=== PATIENT | male | born 1980 | race Caucasian/White ===

== ENCOUNTER 2017-02-03 17:33 | Emergency (ER) ==
[2017-02-03 17:37] VITALS: BP 148/82; TEMP 97.5; BMI 23.0
[2017-02-03] MEDS ORDERED: MORPHINE 2 MG/ML SYRINGE IVP STA ×2 (17:43→18:32)
--- NOTE | 2017-02-03 17:50 | ED.PDOC ---
General ED Provider: Dr. ALBERT FRANKLIN JR Chief Complaint: Hand Laceration Stated Complaint: CUTTING A FLAT BOARD WITH A TABLE SAW, BOARD SLIPPED HAND ENTERED UNDERNEATH SAW[ End ]97.5 85 20 99% 148/82 11/23 LEFT HAND LACERATION- LARGE PATIENT FULL THICKNESS TRAUMA LEFT HAND TO THUMB FROM THE FIRST KNUCKLE. [ End ] Time Seen by Physician: 17:50 Mode of Arrival: Walk-In Information Source: Patient Exam Limitations: Clinical condition Nursing and Triage Documentation Reviewed and Agree: Yes Reviewed sepsis parameters & appropriate labs ordered?: No System Inflammatory Response Syndrome: Not Applicable Sepsis Protocol: For patient's 13 years and over: Temp is 96.8 and below OR 101 and greater Pulse >90 BPM Resp >20/minute Acutely Altered Mental Status Are patient's symptoms suggestive of a new infection, such as: -Pneumonia -Skin, Soft Tissue -Endocarditis -UTI -Bone, Joint Infection -Implantable Device -Acute Abdominal Infection -Wound Infection -Meningitis -Blood Stream Catheter Infection -Unknown System Inflammatory Response Syndrome: Not Applicable Trauma/Injury Complaint Exam - Trauma Complaint/Exam Location of Pain or Injury: Reports: LUE Mechanism of Injury: Reports: Penetrating trauma Symptoms Are: Still present Timing of Treatment: Immediate Initial Severity: Moderate Current Severity: Moderate Character: Reports: Burning, Sharp, Stabbing Aggravating: Reports: Movement, Palpation Alleviating: Reports: None Associated Signs and Symptoms: Reports: Swelling, Extremity disuse EMS Interventions: Present: Vascular access obtained Skin Findings: Present: Laceration, Abrasion, Deformity Differential Diagnoses: Abrasion, Contusions, Fracture, Dislocation, Laceration Review of Systems - Review Of Systems Constitutional: Reports: Malaise, Weakness Eyes: Reports: No symptoms Ears, Nose, Mouth, Throat: Reports: No symptoms Respiratory: Reports: No symptoms Cardiac: Reports: No symptoms GI: Reports: No symptoms : Reports: No symptoms Musculoskeletal: Reports: Joint pain, Other (DEVIATION OF THRID DIGIT) Skin: Reports: Lesions Neurological: Reports: No symptoms Endocrine: Reports: No symptoms Hematologic/Lymphatic: Reports: No symptoms All Other Systems: Other Past Medical History - Past Medical History Previously Healthy: Yes Endocrine: Reports: None Cardiovascular: Reports: None Respiratory: Reports: None Hematological: Reports: None Gastrointestinal: Reports: None Genitourinary: Reports: None Neuro/Psych: Reports: None Musculoskeletal: Reports: None Cancer: Reports: None - Surgical History General Surgical History: Reports: None - Family History Family History: Reports: Unknown - Social History Smoking Status: Current every day smoker, Heavy tobacco smoker Hx Substance Use: No Alcohol Screening: Occasionally - Immunizations Tetanus Shot up to Date: No Physical Exam - Physical Exam Appearance: Ill-appearing Pain Distress: Moderate Neck: Supple Respiratory: Airway patent Musculoskeletal: Limited ROM (left hand with large laceration second mcp small laceration third mcp) Skin: Warm (immediate capillary refill) Neurological: Sensation intact, Alert, Oriented Psychiatric: Anxious Physician Notification - Case Discussed Physician Notified: LUCIUS AT [facility]/reyes also declines Time of Notification: 17:55 (DR BURCH DNDH/PLASTICS NOT BURR SANDER) Physician Notified: dr sommer at [facility]- states transfer not appropriate for skin repair Endorsed To/Discussed With: acceptstransfer-will call hospital change management administrator Reviewed With: dr claros- visualized laceration before transfer to [facility] Critical Care Note - Critical Care Note Total Time (mins): 0 Course - Course Orders, Labs, Meds: Orders Category Date Time Status ED IV/MEDIPORT/POWERPORT .ONCE EMERGENCY 02/03/17 17:43 Active 0.9 % Sodium Chloride [Saline Flush] MEDS 02/03/17 17:43 Discontinued 1 syr IVF PRN PRN Diphth,Pertuss(Acell),Tet Vac [Boostrix] MEDS 02/03/17 18:35 Discontinued 0.5 ml IM .ONCE ONE Morphine Sulfate [Morphine 2 mg/ml Syringe] MEDS 02/03/17 17:43 Discontinued 2 mg IVP ONCE STA Morphine Sulfate [Morphine 2 mg/ml Syringe] MEDS 02/03/17 18:32 Discontinued 4 mg IVP ONCE STA Ondansetron HCl/Pf [Zofran 4 mg/2 ml] MEDS 02/03/17 17:51 Discontinued 4 mg IVP ONCE STA HAND, LEFT 3 VIEWS Stat RADS 02/03/17 17:43 Completed Medications Discontinued Medications Generic Name Dose Route Start Last Admin Trade Name Freq PRN Reason Stop Dose Admin Diphtheria/Pertussis/Tetanus Vacc 0.5 ml 02/03/17 18:35 02/03/17 18:42 Boostrix IM 02/03/17 18:36 0.5 ml .ONCE ONE Administration Morphine Sulfate 2 mg 02/03/17 17:43 02/03/17 18:03 Morphine 2 Mg/Ml Syringe IVP 02/03/17 17:44 2 mg ONCE STA Administration Morphine Sulfate 4 mg 02/03/17 18:32 02/03/17 18:42 Morphine 2 Mg/Ml Syringe IVP 02/03/17 18:33 4 mg ONCE STA Administration Ondansetron HCl 4 mg 02/03/17 17:51 02/03/17 18:03 Zofran 4 Mg/2 Ml IVP 02/03/17 17:52 4 mg ONCE STA Administration Sodium Chloride 1 syr 02/03/17 17:43 02/03/17 18:03 Saline Flush IVF 1 syr PRN PRN Administration To flush IV Vital Signs: Temp Pulse Resp BP Pulse Ox 02/03/17 17:34 97.5 F L 85 20 148/82 H 99 Departure - Departure Time of Disposition: 18:38 Disposition: TSF SHORT-TRM HOSP Discharge Problem: Laceration of hand Condition: Stable Pt referred to PMD for follow-up: No (plastic surgery) Allergies/Adverse Reactions: Allergies No Known Allergies Allergy (Unverified 02/03/17 17:37) Home Medications: Ambulatory Orders 1 [No Reported Medications] 02/03/17
[2017-02-03] MEDS ORDERED: ZOFRAN 4 MG/2 ML IVP STA (17:51)
--- NOTE | 2017-02-03 18:21 | DI ---
EXAM: Three views left hand. CLINICAL INDICATION: Injury. Cut left hand with table saw. FINDINGS: There is a slight undisplaced chip fracture involving the distal aspect of the left first distal phal anx tuft. There also some tiny bony fragments within the soft tissues at the distal aspect of the th umb. There is soft tissue swelling within the left index finger. Along the radial aspect of the left seco nd distal phalanx there are too small bony chip fractures which likely have arisen from the radial as pect of the base of the left second distal phalanx and possibly the radial aspect of the distal aspec t of the left second middle phalanx. Otherwise, there are no other fractures, dislocations or other s ignificant bony abnormalities. There is no gross soft tissue abnormality. IMPRESSION: 1. Fracture involving the distal left first phalanx tuft with at least three tiny bony fragments wit hin the soft tissue. 2. Small soft tissue bony fragments along the radial aspect of the left second distal phalanx, likel y arising from the juxta articular aspect of the left second middle and distal phalanges as described above.
[2017-02-03] MEDS ORDERED: BOOSTRIX IM ONE (18:35)
== END 2017-02-03 19:00 | disposition short-term general hospital (02) ==
LOC: ED 17:33
DX: S61.412A Laceration without foreign body of left hand, initial encounter (principal); W29.8XXA Contact with other powered hand tools and household machinery, initial encounter; Y93.H3 Activity, building and construction; F17.210 Nicotine dependence, cigarettes, uncomplicated
CPT/HCPCS: 90471; 90715; 96360; 96361; 96374; 96375; 96376; 99285

== ENCOUNTER → 2017-02-03 | Outpatient (CLI) ==
[2017-02-03 17:37] VITALS: BMI 23.0
== END ==
LOC: AMBL 19:04
PROVIDERS: ATTEND Family Medicine
DX: S61.412A Laceration without foreign body of left hand, initial encounter (principal); W29.8XXA Contact with other powered hand tools and household machinery, initial encounter; Y93.H3 Activity, building and construction

== ENCOUNTER 2022-04-26 05:28 | Observation (INO) ==
[2022-04-26 05:37] VITALS: BMI 23.6
[2022-04-26] MEDS ORDERED: TORADOL IVP STA (06:03)
[2022-04-26] MEDS ORDERED: DILAUDID 1 MG/ML SYRINGE IVP STA (06:03)
[2022-04-26] MEDS ORDERED: UNASYN 3 GM in SODIUM CHLORIDE 100ML 100 ML IV STA (06:03)
[2022-04-26] MEDS ORDERED: UNASYN ONE (06:09)
--- NOTE | 2022-04-26 06:14 | ED.PDOC ---
General ED Provider: Dr. MYAH UREÑA Chief Complaint: Non-specific Complaint Stated Complaint: comes to the ER with right had swelling and pain with redness and red streak going up the right forearm. 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 Time Seen by Provider: 04/26/22 06:03 Mode of Arrival: Walk-In Information Source: Patient Nursing and Triage Documentation Reviewed and Agree: Yes Does patient meet sepsis criteria?: No System Inflammatory Response Syndrome: Not Applicable Sepsis Protocol: For patient's 13 years and over: Temp is 96.8 and below OR 101 and greater Pulse >90 BPM Resp >20/minute Acutely Altered Mental Status Are patient's symptoms suggestive of a new infection, such as: -Pneumonia -Skin, Soft Tissue -Endocarditis -UTI -Bone, Joint Infection -Implantable Device -Acute Abdominal Infection -Wound Infection -Meningitis -Blood Stream Catheter Infection -Unknown Skin Complaint Exam Skin/Soft Tissue Complaint/Exam Onset/Duration: 1 day Symptoms Are: Still present Timing: Constant Initial Severity: Moderate Current Severity: Severe Location: Right hand Character: Reports Redness, Swelling and Painful Aggravating: Reports Touch Alleviating: Reports None Associated Signs and Symptoms: Reports Tenderness and Red streaks Related History: Reports Recent trauma and Foreign body (wood splinter on the right hand that he removed 2 days ago ) Skin Findings: Present Erythema and Induration Differential Diagnoses: Abscess, Cellulitis and Foreign Body Review of Systems Review Of Systems Constitutional: Reports No symptoms Musculoskeletal: Reports Muscle pain Skin: Reports Rash Neurological: Reports Anxiety All Other Systems: Reviewed and Negative [facility] Medical History (Updated 04/26/22 @ 06:57 by MYAH UREÑA MD) No known health problems Family History (Updated 04/26/22 @ 06:06 by ALEXI HUMPHREYS LPN) Other No known health problems Social History (Updated 04/26/22 @ 06:06 by ALEXI HUMPHREYS LPN) Smoking and tobacco status: Current every day smoker Tobacco type: cigarettes Alcohol intake: current Substance use type: marijuana Surgical History (Updated 04/26/22 @ 06:05 by ALEXI HUMPHREYS LPN) No history of previous surgery Physical Exam Physical Exam Appearance: Reports Ill-appearing Ill-appearing: Mild Pain Distress: Severe Eyes: Reports DERRICK, EOMI and Conjunctiva clear ENT: Reports Nose normal and Oropharynx normal Neck: Supple Respiratory: Reports Airway patent and Breath sounds clear Cardiovascular: Reports RRR, Pulses normal and No rub GI/: Reports Soft and Nontender Musculoskeletal: Reports Edema (right hand ) Skin: Reports Warm, Dry and Other (redness of the right palm with read streak going to the right forearm ) Neurological: Reports Motor intact, Alert and Oriented Psychiatric: Reports Anxious Interpretation Radiology Interpretation Radiology Interpretation By: Radiologist Radiology Results: Positive (Impression: Edema and inflammatory stranding in the hand and wrist as described, suspicious for infection. No evidence of a radiopaque foreign body.) Exam Interpreted: CT Scan Re-Evaluation Re-Evaluation Time of Re-Evaluation: 06:45 Status: Improved Vital Signs Stable: Yes Pain Level: improved Critical Care Note Critical Care Note Total Critical Care Time (mins): 30 Course Course Hematology/Chemistry: 04/26/22 06:25 04/26/22 06:25 Orders, Labs, Meds: Lab Review 04/26/22 04/26/22 04/26/22 06:03 06:25 06:25 WBC 13.58 H RBC 4.17 L Hgb 13.0 L Hct 37.1 L MCV 89.0 MCH 31.2 H MCHC 35.0 RDW Coeff of Fiordaliza 12.6 Plt Count 282 Immature Gran % (Auto) 0.4 Neut % (Auto) 80.9 H Lymph % (Auto) 11.9 [place] % (Auto) 6.0 Eos % (Auto) 0.4 Baso % (Auto) 0.4 Neut # (Auto) 11.0 H Lymph # (Auto) 1.6 [place] # (Auto) 0.8 Eos # (Auto) 0.1 Baso # (Auto) 0.1 Immature Gran # (Auto) 0.1 ESR Pending Sodium 132.7 L Potassium 3.87 Chloride 101.2 Carbon Dioxide 26.2 Anion Gap 9.17 BUN 15.1 Creatinine 0.80 Estimated GFR (MDRD) 106.00 BUN/Creatinine Ratio 18.87 Glucose 147.1 H Calcium 9.00 Total Bilirubin 0.61 AST 19.8 ALT 14.5 Alkaline Phosphatase 130.6 H Total Protein 7.83 Albumin 4.40 Globulin 3.43 Albumin/Globulin Ratio 1.28 SARS CoV-2 RNA Rapid AMBER Negative Orders Category Date Time Status [facility] ADMISSION 04/26/22 06:37 Active INTAKE & OUTPUT Q8HR CARE 04/26/22 06:37 Active TELEMETRY MONITORING TELE CARE 04/26/22 06:37 Active VITAL SIGNS Q4HR CARE 04/26/22 06:40 Active REGULAR DIET DIETARY 04/26/22 Breakfast Ordered BASIC METABOLIC PANEL DAILY@0600 LAB 04/27/22 06:00 Ordered BASIC METABOLIC PANEL DAILY@0600 LAB 04/28/22 06:00 Ordered BLOOD CULTURE (ED ONLY) Stat LAB 04/26/22 06:25 Received CBC W/ AUTO DIFF DAILY@0600 LAB 04/27/22 06:00 Ordered CBC W/ AUTO DIFF DAILY@0600 LAB 04/28/22 06:00 Ordered CBC W/ AUTO DIFF Stat LAB 04/26/22 06:25 Results CMP [COMPREHENSIVE METABOLIC PANEL] Stat LAB 04/26/22 06:25 Completed ESR Stat LAB 04/26/22 06:25 Results SARS COV-2 RNA RAPID AMBER Stat LAB 04/26/22 06:03 Completed Ampicillin Sodium/Sulbactam Na [Unasyn] MEDS 04/26/22 06:09 Discontinued 3 gm .ROUTE .STK-MED ONE Ampicillin Sodium/Sulbactam Na [Unasyn] 1.5 gm MEDS 04/26/22 12:00 Ordered 0.9 % Sodium Chloride [Sodium Chloride] 50 ml IV Q6HR Ampicillin Sodium/Sulbactam Na [Unasyn] 3 gm MEDS 04/26/22 06:03 Active 0.9 % Sodium Chloride [Sodium Chloride 100Ml] 100 ml IV ONCE Enoxaparin Sodium [Lovenox] MEDS 04/26/22 09:00 Ordered 40 mg SUBCUT DAILY Hydromorphone HCl [Dilaudid 1 mg/ml Syringe] MEDS 04/26/22 06:03 Discontinued 1 mg IVP ONCE STA Hydromorphone HCl [Dilaudid 1 mg/ml Syringe] MEDS 04/26/22 06:37 Ordered 1 mg IVP Q4HR PRN Ketorolac Tromethamine [Toradol] MEDS 04/26/22 06:03 Discontinued 30 mg IVP ONCE STA Ondansetron HCl/Pf [Zofran 4 mg/2 ml] MEDS 04/26/22 06:37 Active 4 mg IVP Q6H PRN Sodium Chloride 0.9% [Sodium Chloride] 1,000 ml MEDS 04/26/22 07:00 Active IV 75 mls/hr Vancomycin Vial (If ) 1 gm MEDS 04/26/22 09:00 Ordered 0.9 % Sodium Chloride [Sodium Chloride] 250 ml IV Q12HR RESUSCITATION STATUS Routine OTHERS 04/26/22 06:[address] HAND RIGHT WITHOUT CONTRAST Stat RADS 04/26/22 06:03 Completed Medications Generic Name Dose Route Start Last Admin Trade Name Freq PRN Reason Stop Dose Admin Enoxaparin Sodium 40 mg 04/26/22 09:00 Enoxaparin Sodium 40 Mg/0.4 Ml Syr SUBCUT DAILY CHRIS Hydromorphone HCl 1 mg 04/26/22 06:37 Hydromorphone Hcl 1 Mg/Ml Syringe IVP Q4HR PRN Severe Pain Ampicillin Sodium/Sulbactam 100 mls @ 100 mls/hr 04/26/22 06:03 04/26/22 06:25 Sodium 3 gm/ Sodium Chloride IV 04/26/22 07:02 100 mls/hr ONCE STA Administration Vancomycin HCl 1 gm/ Sodium 250 mls @ 125 mls/hr 04/26/22 09:00 Chloride IV 04/29/22 08:59 Q12HR CHRIS Sodium Chloride 1,000 mls @ 75 mls/hr 04/26/22 07:00 Sodium Chloride IV .[id number] CHRIS Ampicillin Sodium/Sulbactam 50 mls @ 75 mls/hr 04/26/22 12:00 Sodium 1.5 gm/ Sodium Chloride IV 04/29/22 11:59 Q6HR CHRIS Ondansetron HCl 4 mg 04/26/22 06:37 Ondansetron Hcl/Pf 4 Mg/2 Ml Sdv IVP Q6H PRN Nausea / Vomiting Discontinued Medications Generic Name Dose Route Start Last Admin Trade Name Freq PRN Reason Stop Dose Admin Hydromorphone HCl 1 mg 04/26/22 06:03 04/26/22 06:17 Hydromorphone Hcl 1 Mg/Ml Syringe IVP 04/26/22 06:04 1 mg ONCE STA Administration Ketorolac Tromethamine 30 mg 04/26/22 06:03 04/26/22 06:17 Ketorolac Tromethamine 30 Mg/Ml Vial IVP 04/26/22 06:04 30 mg ONCE STA Administration Vital Signs: Temp Pulse Resp BP Pulse Ox 04/26/22 05:29 98.9 F 89 20 111/75 99 Discharge Plan Discharge Patient Disposition: ADMITTED INPATIENT Discharge Problem: Cellulitis of hand, right ED Provider: MYAH URÑEA Condition: Fair Physician Progress Note: []
[2022-04-26 06:31] LABS: BASOPHILS # (AUTO) 0.1 K/uL (0-0.2); BASOPHILS % (AUTO) 0.4 % (0.0-3.0); EOSINOPHILS # (AUTO) 0.1 K/ul (0.0-0.7); EOSINOPHILS % (AUTO) 0.4 % (0.0-7.0); HEMATOCRIT 37.1 % (42.0-52.0); IMMATURE GRANULOCYTE # (AUTO) 0.1 (0.0-1.0); IMMATURE GRANULOCYTE % (AUTO) 0.4 % (0.0-5.0); LYMPHOCYTES # (AUTO) 1.6 K/uL (0.60-3.4); LYMPHOCYTES % (AUTO) 11.9 (10.0-50.0); MEAN CORPUSCULAR HEMOGLOBIN 31.2 pg (27.0-31.0); MONOCYTES # (AUTO) 0.8 K/uL (0.4-2.0); NEUTROPHILS % (AUTO) 80.9 % (42.2-75.2); PLATELET COUNT 282 10^3/uL (140-440); RDW COEFFICIENT OF VARIATION 12.6 % (11.6-14.8); RED BLOOD COUNT 4.17 10^6/ul (4.70-6.10); WHITE BLOOD COUNT 13.58 K/ul (4.2-10.2)
[2022-04-26] MEDS ORDERED: ZOFRAN 4 MG/2 ML IVP PRN (06:37)
[2022-04-26 06:42] LABS: ALANINE AMINOTRANSFERASE 14.5 U/L (0-50); ALBUMIN 4.4 g/dL (3.5-5.0); ALKALINE PHOSPHATASE 130.6 U/L (38-126); ASPARTATE AMINO TRANSFERASE 19.8 U/L (17-59); BILIRUBIN,TOTAL 0.61 mg/dL (0.2-1.3); BLOOD UREA NITROGEN 15.1 mg/dL (9-20); CARBON DIOXIDE 26.2 mmol/L (22-30.0); CHLORIDE 101.2 mmol/L (98-107); CREATININE 0.8 mg/dL (0.60-1.10); GLUCOSE 147.1 mg/dL (74-106); POTASSIUM 3.87 mmol/L (3.5-5.1); SODIUM 132.7 mmol/L (134.5-145); TOTAL PROTEIN 7.83 g/dL (6.3-8.2)
[2022-04-26 06:45] LABS: SARS COV-2 RNA RAPID NAAT NEGATIVE (NEGATIVE)
--- NOTE | 2022-04-26 06:48 | CT ---
EXAM: CT OF THE RIGHT HAND WITHOUT CONTRAST. HISTORY: Swelling. Possible foreign body. PROCEDURE: Contiguous axial CT images of the right hand without contrast with coronal and sagittal r eformats. FINDINGS: The proximal carpal bones are incompletely visualized secondary to the field of view which limits the exam. The visualized bones are normal in appearance. The visualized joint spaces are ma intained. No evidence of a radiopaque foreign body. There is edema and inflammatory stranding in th e soft tissues of the hand and visualized portion of the wrist. No discrete fluid collection or evid ence of abscess. Impression: Edema and inflammatory stranding in the hand and wrist as described, suspicious for infe ction. No evidence of a radiopaque foreign body. All CT scans are performed using dose optimization techniques as appropriate to the performed exam an d include at least one of the following: Automated exposure control, adjustment of the mA and/or kV according t o size, and the use of iterative reconstruction technique.
[2022-04-26 07:26] LABS: ERYTHROCYTE SEDIMENTATION RATE 27 mm/hr (0-15)
[2022-04-26] MEDS ORDERED: VANCOMYCIN VIAL (IF PREGNANT) 1 GM in SODIUM CHLORIDE 250 ML IV SCH (09:00)
[2022-04-26] MEDS: LOVENOX SUBCUT SCH (10:32)
[2022-04-26] MEDS: DILAUDID 1 MG/ML SYRINGE IVP PRN ×2 (10:33→18:25)
[2022-04-26] MEDS: SODIUM CHLORIDE 1,000 ML IV SCH (10:35)
[2022-04-26] MEDS ORDERED: UNASYN 1.5 GM in SODIUM CHLORIDE 50 ML IV SCH (12:00)
[2022-04-26] MEDS: TORADOL IVP PRN (12:22)
[2022-04-26] MEDS: MAXIPIME 2 GM/50 ML D5W 2 GM/50 ML BAG IV SCH ×2 (12:28→20:04)
[2022-04-26] MEDS: VANCOMYCIN 1.25 GM/250 ML BAG 1.25 GM/250 ML BAG IV SCH ×2 (14:08→21:03)
[2022-04-27] MEDS: MAXIPIME 2 GM/50 ML D5W 2 GM/50 ML BAG IV SCH ×3 (05:11→20:16)
[2022-04-27 05:13] LABS: BASOPHILS % (AUTO) 0.4 % (0.0-3.0); EOSINOPHILS # (AUTO) 0.2 K/ul (0.0-0.7); EOSINOPHILS % (AUTO) 1.5 % (0.0-7.0); HEMATOCRIT 35.2 % (42.0-52.0); HEMOGLOBIN 11.9 g/dl (14.0-18.0); IMMATURE GRANULOCYTE # (AUTO) 0.1 (0.0-1.0); IMMATURE GRANULOCYTE % (AUTO) 0.7 % (0.0-5.0); LYMPHOCYTES # (AUTO) 2.1 K/uL (0.60-3.4); LYMPHOCYTES % (AUTO) 19.9 (10.0-50.0); MEAN CORPUSCULAR HEMOGLOBIN 30.3 pg (27.0-31.0); MEAN CORPUSCULAR HGB CONC 33.8 (31.8-35.4); MEAN CORPUSCULAR VOLUME 89.6 fl (80.0-94.0); MONOCYTES # (AUTO) 0.8 K/uL (0.4-2.0); MONOCYTES % (AUTO) 7.6 (0-10); NEUTROPHILS # (AUTO) 7.3 K/ul (2.0-6.9); NEUTROPHILS % (AUTO) 69.9 % (42.2-75.2); PLATELET COUNT 270 10^3/uL (140-440); RDW COEFFICIENT OF VARIATION 12.6 % (11.6-14.8); RED BLOOD COUNT 3.93 10^6/ul (4.70-6.10); WHITE BLOOD COUNT 10.49 K/ul (4.2-10.2)
[2022-04-27 05:29] LABS: BLOOD UREA NITROGEN 12.2 mg/dL (9-20); CALCIUM 8.69 mg/dL (8.4-10.2); CARBON DIOXIDE 24.8 mmol/L (22-30.0); CHLORIDE 104.9 mmol/L (98-107); CREATININE 0.73 mg/dL (0.60-1.10); GLUCOSE 113.1 mg/dL (74-106); POTASSIUM 3.9 mmol/L (3.5-5.1); SODIUM 133.8 mmol/L (134.5-145)
[2022-04-27] MEDS: TORADOL IVP PRN ×2 (05:36→17:17)
[2022-04-27] MEDS: DILAUDID 1 MG/ML SYRINGE IVP PRN ×4 (05:36→21:56)
[2022-04-27] MEDS: VANCOMYCIN 1.25 GM/250 ML BAG 1.25 GM/250 ML BAG IV SCH ×2 (05:52→15:45)
[2022-04-27] MEDS: SODIUM CHLORIDE 1,000 ML IV SCH ×2 (05:53→21:05)
[2022-04-27] MEDS: LOVENOX SUBCUT SCH (08:45)
[2022-04-27] MEDS: VANCOMYCIN 1.5 GRAM/300 ML PREMIX 1.5 GM/300 ML BAG IV SCH ×2 (13:26→21:06)
--- NOTE | 2022-04-27 17:22 | PCM.PROG ---
Date Seen by Provider: 04/27/22 Time Seen by Provider: 13:15 Subjective: Patient was admitted for right upper extremity cellulitis 2 days ago States that the swelling has gone down some but still there. The redness has significantly improved. States he is unable to keep it raised due to severe pain States he is still having good bowel movements. Objective: Vitals: T=97.6 F, P=72, R=16, MO=660/67, SPO2=98 HEENT: [Mucus membranes moist ] Neck: [] Lungs: [Clinically clear bilaterally] CVS: [Regular S1 and S2 only ] Abdomen: [Benign ] Extremities: [Right upper extremity hand swelling, Redness has receded from previously marked area] Neurological: [Awake and alert] Skin: [Redness and red streak much improved ] Lab/Tests/Diagnostic Imaging: [ Laboratory Results - last 24 hr 04/27/22 04/27/22 04/27/22 04:46 04:46 12:40 WBC 10.49 H RBC 3.93 L Hgb 11.9 L Hct 35.2 L MCV 89.6 MCH 30.3 MCHC 33.8 RDW Coeff of Fiordaliza 12.6 Plt Count 270 Immature Gran % (Auto) 0.7 Neut % (Auto) 69.9 Lymph % (Auto) 19.9 [place] % (Auto) 7.6 Eos % (Auto) 1.5 Baso % (Auto) 0.4 Neut # (Auto) 7.3 H Lymph # (Auto) 2.1 [place] # (Auto) 0.8 Eos # (Auto) 0.2 Baso # (Auto) 0.0 Immature Gran # (Auto) 0.1 Sodium 133.8 L Potassium 3.90 Chloride 104.9 Carbon Dioxide 24.8 Anion Gap 8.00 BUN 12.2 Creatinine 0.73 Estimated GFR (MDRD) 117.00 BUN/Creatinine Ratio 16.71 Glucose 113.1 H Calcium 8.[address] soft right had on admission no abscess just cellulitis ] (1) Cellulitis of hand, right: Status: Acute Code(s): L03.113 - Cellulitis of right upper limb SNOMED Code(s): 08909181 Assessment: on Cefepime and vancomycin Plan: Continue current antibiotics as the cellulitis is improving. Disposition on PO antibiotics when swelling has improved
[2022-04-28] MEDS: MAXIPIME 2 GM/50 ML D5W 2 GM/50 ML BAG IV SCH (04:03)
[2022-04-28] MEDS: VANCOMYCIN 1.5 GRAM/300 ML PREMIX 1.5 GM/300 ML BAG IV SCH (04:53)
[2022-04-28 05:19] LABS: BASOPHILS # (AUTO) 0.1 K/uL (0-0.2); BASOPHILS % (AUTO) 0.9 % (0.0-3.0); EOSINOPHILS # (AUTO) 0.3 K/ul (0.0-0.7); EOSINOPHILS % (AUTO) 3.9 % (0.0-7.0); HEMATOCRIT 34.7 % (42.0-52.0); HEMOGLOBIN 11.6 g/dl (14.0-18.0); IMMATURE GRANULOCYTE # (AUTO) 0.1 (0.0-1.0); IMMATURE GRANULOCYTE % (AUTO) 0.8 % (0.0-5.0); LYMPHOCYTES # (AUTO) 1.9 K/uL (0.60-3.4); LYMPHOCYTES % (AUTO) 30.1 (10.0-50.0); MEAN CORPUSCULAR HEMOGLOBIN 30.1 pg (27.0-31.0); MEAN CORPUSCULAR HGB CONC 33.4 (31.8-35.4); MEAN CORPUSCULAR VOLUME 90.1 fl (80.0-94.0); MONOCYTES # (AUTO) 0.6 K/uL (0.4-2.0); MONOCYTES % (AUTO) 8.7 (0-10); NEUTROPHILS # (AUTO) 3.6 K/ul (2.0-6.9); NEUTROPHILS % (AUTO) 55.6 % (42.2-75.2); PLATELET COUNT 286 10^3/uL (140-440); RDW COEFFICIENT OF VARIATION 12.6 % (11.6-14.8); RED BLOOD COUNT 3.85 10^6/ul (4.70-6.10); WHITE BLOOD COUNT 6.44 K/ul (4.2-10.2)
[2022-04-28 05:33] LABS: BLOOD UREA NITROGEN 16.5 mg/dL (9-20); CALCIUM 8.38 mg/dL (8.4-10.2); CHLORIDE 106.8 mmol/L (98-107); CREATININE 0.76 mg/dL (0.60-1.10); GLUCOSE 111.7 mg/dL (74-106); POTASSIUM 4.17 mmol/L (3.5-5.1); SODIUM 137.1 mmol/L (134.5-145)
[2022-04-28] MEDS: DILAUDID 1 MG/ML SYRINGE IVP PRN (07:25)
--- NOTE | 2022-04-28 09:36 | PCM.PROG ---
Date Seen by Provider: 04/28/22 Time Seen by Provider: 08:45 Subjective: Pain improving. Objective: Vitals: T=98.1 F, P=77, R=16, KG=651/75, SPO2=96 Remains afebrile HEENT: [] Neck: [] Lungs: [] CVS: [] Abdomen: [] Extremities: [] Erythema decreased. Still with mild to moderate swelling of hand. No fluctuance, drainage or tenderness. Neurological: [] Skin: [] Lab/Tests/Diagnostic Imaging: [] (1) Cellulitis of hand, right: Status: Acute Code(s): L03.113 - Cellulitis of right upper limb SNOMED Code(s): 81314817 Assessment: Much improved. Plan: Discharge patient home on keflex.
--- NOTE | 2022-04-28 09:40 | PCM.DC ---
Final Diagnosis: hand cellulitis Physical Exam Appearance: Well-appearing, No pain distress and Well-nourished Ill-appearing: None Pain Distress: None Eyes: Not Examined ENT: Not Examined Neck: Not Examined Respiratory: Not Examined Cardiovascular: Not Examined GI/: Not Examined Musculoskeletal: Other (Mild to moderate swelling right hand. Puncture wound clean. No tenderness or fluctuance. Decreased erythema.) Skin: Warm and Dry Neurological: Sensation intact, Motor intact, Alert and Oriented Psychiatric: Affect appropriate and Mood appropriate (1) Cellulitis of hand, right: Status: Acute Code(s): L03.113 - Cellulitis of right upper limb SNOMED Code(s): 44774499 Reason for Hospitalization: Patient admitted with cellulitis of right hand Prognosis/Condition at Discharge: Condition at discharge was good Medications at Discharge: Patient discharged on keflex Education Provided to Patient and Family: cellulitis Follow-ups: Follow up with primary care provider in 2 days. Discharge Disposition: Home Hospital Course: Patient admitted with cellulitis of right hand related to a splinter FB. He was treated with IV antibiotics and had a good response. Plan: Discharge to home on Keflex.
[2022-04-28] MEDS: LOVENOX SUBCUT SCH (09:41)
[2022-04-28 10:16] VITALS: BP 129/88; TEMP 96
== END 2022-04-28 10:36 | disposition home or self-care (01) ==
LOC: ED 05:28 → INTOOBSV 08:04 → MEDSURG A 08:04
PROVIDERS: ADMIT Internal Medicine Geriatric Medicine; ATTEND Surgery
DX: Z20.822 Contact with and (suspected) exposure to COVID-19; L03.113 Cellulitis of right upper limb; F17.210 Nicotine dependence, cigarettes, uncomplicated